=== PATIENT | male | born 1930 | race Caucasian/White ===

== ENCOUNTER 2017-10-14 18:51 | Inpatient (IN) | payer MEDICARE ==
[~2017-10-14] VITALS: Ht 175.3 cm; Wt 78.9 kg
--- NOTE | ~2017-10-14 | EC ---
PATIENT:JOHN MAYNARD DATE OF SERVICE: 10/14/17 SEX: M MEDICAL RECORD: [id number] DATE OF : [birth year] LOCATION:[facility] AGE OF PATIENT: 86 ADMISSION DATE: 10/14/17 REFERRING PHYSICIAN: INTERPRETING PHYSICIAN: NITHIN HERNÁNDEZ MD ECHOCARDIOGRAM REPORT ECHO CHARGES CLINICAL DIAGNOSIS: ECHOCARDIOGRAPHIC MEASUREMENTS (adult normal given) AC root (d.<3.7cm) cm LV Septum d (<1.2 cm> cm Valve Excursion cm LV Septum (systole) cm Left Atria (s.<4.0cm> cm LVPW d(<1.2cm) cm RV (d.<2.3cm) cm LVPW (sytole) cm LV diastole(<5.6CM) cm MV E-F(>70mm/sec) cm LV systole cm LVOT Diameter cm MV exc.(>10mm) cm Est.ejection fraction (50-75%) % Pericardial Effusion DOPPLER: LVIT cm/sec A cm/sec E cm/sec LA cm/sec RVSP mmHg LVOT cm/sec AOP1/2T m/s Asc. Ao cm/sec RVOT cm/sec RA cm/sec PA cm/sec AV Gradient Peak mmHg AV Mean mmHg AV Area cm MV Gradient Peak mmHg MV Mean mmHg MV Area cm COMMENTS: Cnc Machine Programmer: Multigraph Operator: BRADY DATE OF SERVICE: 10/16/2017 PROCEDURE: Echocardiogram. FINDINGS: 1. Technically difficult study secondary to patient movement. 2. Left ventricle chamber size is within normal limits. Left ventricular systolic function is normal. Overall ejection fraction estimated at 55%. 3. Left atrium, right atrium, and right ventricular chamber sizes are within normal limits. ECHOCARDIOGRAM REPORT [id number] JOHN MAYNARD 4. Valvular structures have normal structure and motion. 5. Doppler interrogation reveals no significant valvular insufficiency or stenosis. 6. No evidence of pericardial effusion or left ventricular thrombus. TRANSINT:[id number] Voice Confirmation ID: [id number] DOCUMENT ID: [id number] NITHIN HERNÁNDEZ MD at 1323 CC: [id number] DICTATION DATE: 10/16/17 1249 BLOCKER AND POLISHER GOLD WHEEL: 10/16/17 1425 DIS IN 10/17/[address] [place] [address]
[2017-10-14 19:30] LABS: BASOPHILS 0.2 % (0-2); EOSINOPHILS 0.3 % (0-7); HEMATOCRIT 40.7 % (36.0-48.0); HEMOGLOBIN 13.6 g/dL (12-16); IMMATURE GRANULOCYTES 0.2 % (0-5); LYMPHOCYTES 23.4 % (15-50); MCH 32.5 pg (26.0-34.0); MCHC 33.4 g/dL (31.0-37.0); MCV 97.1 fL (80.0-100.0); MEAN PLATELET VOLUME 10.8 fL (7.4-10.4); MONOCYTES 11.2 % (2-11); NEUTROPHILS 64.7 % (40-80); PLATELET COUNT 271 10x3/uL (130-400); RBC 4.19 10x6/uL (4.00-5.40); RDW 14.6 % (11.5-14.5); WBC 10.9 10x3/uL (4.8-10.8)
[2017-10-14 19:52] LABS: ALBUMIN 3.6 g/dL (3.4-5.0); BILIRUBIN - TOTAL 0.48 mg/dL (0.2-1.3); CALCIUM 9.4 mg/dL (8.5-10.1); CARBON DIOXIDE 24.7 mmol/L (21.0-32.0); CREATININE - SERUM 1.8 mg/dL (0.6-1.3); POTASSIUM - SERUM 3.7 mmol/L (3.5-5.1); PROTEIN - SERUM 8.6 g/dL (6.4-8.2)
[2017-10-14 20:29] LABS: KETONE - SERUM NEGATIVE (NEGATIVE)
[2017-10-14 20:37] LABS: CREATINE KINASE 45 UL (21-215); MAGNESIUM - SERUM 2.2 mg/dL (1.8-2.4); PRO BNP 809 pg/mL (0-450)
[2017-10-14 20:49] LABS: APPEARANCE CLEAR (CLEAR); BILIRUBIN NEGATIVE (NEGATIVE); COLOR YELLOW (YELLOW); GLUCOSE NEGATIVE (NEGATIVE); KETONE NEGATIVE (NEGATIVE); NITRITE NEGATIVE (NEGATIVE); PROTEIN TRACE mg/dL (NEGATIVE); UROBILINOGEN NORMAL (NORMAL)
[2017-10-14 20:50] LABS: TROPONIN-I < 0.017 ng/mL (0.000-0.060)
[2017-10-15] MEDS ORDERED: OMEPRAZOLE40 MG PO (00:16)
[2017-10-15] MEDS ORDERED: GLUCOTROL 5 MG T5 MG PO (00:17)
[2017-10-15] MEDS ORDERED: NORVASC10 MG PO (00:17)
[2017-10-15] MEDS ORDERED: LIPITOR20 MG PO (00:19)
[2017-10-15 02:41] VITALS: BP 138/55; BMI 25.7
[2017-10-15 04:00] VITALS: BP 113/52
[2017-10-15 10:57] VITALS: BP 115/45
[2017-10-15 12:45] VITALS: BP 144/61
[2017-10-15 13:15] VITALS: Ht 175.3 cm; Wt 78.9 kg
[2017-10-15 14:07] LABS: BASOPHILS 0.1 % (0-2); EOSINOPHILS 0 % (0-7); HEMATOCRIT 37.1 % (42.0-54.0); HEMOGLOBIN 12.5 g/dL (13.5-17.5); IMMATURE GRANULOCYTES 0.3 % (0-5); LYMPHOCYTES 11.6 % (15-50); MCH 32.5 pg (26.0-34.0); MCHC 33.7 g/dL (31.0-37.0); MCV 96.4 fL (80.0-100.0); MEAN PLATELET VOLUME 11.1 fL (7.4-10.4); MONOCYTES 6.7 % (2-11); NEUTROPHILS 81.3 % (40-80); PLATELET COUNT 261 10x3/uL (130-400); RBC 3.85 10x6/uL (4.20-6.10); RDW 14.7 % (11.5-14.5); WBC 9.3 10x3/uL (4.8-10.8)
[2017-10-15 14:31] LABS: ANION GAP 13.5 mmol/L (8-16); BILIRUBIN - TOTAL 0.52 mg/dL (0.2-1.3); CALCIUM 9.4 mg/dL (8.5-10.1); CREATININE - SERUM 1.7 mg/dL (0.6-1.3); POTASSIUM - SERUM 3.5 mmol/L (3.5-5.1); PROTEIN - SERUM 7.5 g/dL (6.4-8.2)
[2017-10-15 16:45] VITALS: BP 137/65
[2017-10-15 20:00] VITALS: BP 127/64
[2017-10-16] VITALS: BP 133/55
[2017-10-16 04:00] VITALS: BP 157/62
[2017-10-16 06:34] LABS: HEMOGLOBIN 12.4 g/dL (13.5-17.5); LYMPHOCYTES 6.7 % (15-50); MCH 31.2 pg (26.0-34.0); MCHC 33.5 g/dL (31.0-37.0); MEAN PLATELET VOLUME 10.3 fL (7.4-10.4); NEUTROPHILS 88.1 % (40-80); PLATELET COUNT 256 10x3/uL (130-400); RBC 3.97 10x6/uL (4.20-6.10); RDW 14.8 % (11.5-14.5)
[2017-10-16 06:43] LABS: MCV 93.2 fL (80.0-100.0); WBC 13.6 10x3/uL (4.8-10.8)
[2017-10-16 07:10] LABS: ALBUMIN 2.8 g/dL (3.4-5.0); ANION GAP 16.4 mmol/L (8-16); BILIRUBIN - TOTAL 0.4 mg/dL (0.2-1.3); CALCIUM 9.1 mg/dL (8.5-10.1); CARBON DIOXIDE 22.5 mmol/L (21.0-32.0); CREATININE - SERUM 1.5 mg/dL (0.6-1.3); POTASSIUM - SERUM 3.9 mmol/L (3.5-5.1); PROTEIN - SERUM 7.4 g/dL (6.4-8.2)
[2017-10-16 09:03] VITALS: BP 143/61
[2017-10-16 13:53] VITALS: BP 104/59
[2017-10-16 16:20] VITALS: BP 109/44
[2017-10-16 22:28] VITALS: BP 122/54
[2017-10-17 02:16] VITALS: BP 144/59
[2017-10-17 04:00] VITALS: BP 138/60
[2017-10-17 06:15] LABS: BASOPHILS 0.1 % (0-2); EOSINOPHILS 0.1 % (0-7); HEMATOCRIT 35.5 % (42.0-54.0); HEMOGLOBIN 11.8 g/dL (13.5-17.5); IMMATURE GRANULOCYTES 0.3 % (0-5); LYMPHOCYTES 11.6 % (15-50); MCH 31.6 pg (26.0-34.0); MCHC 33.2 g/dL (31.0-37.0); MCV 94.9 fL (80.0-100.0); MEAN PLATELET VOLUME 10.6 fL (7.4-10.4); MONOCYTES 6.9 % (2-11); PLATELET COUNT 269 10x3/uL (130-400); RBC 3.74 10x6/uL (4.20-6.10); RDW 14.6 % (11.5-14.5); WBC 11.3 10x3/uL (4.8-10.8)
[2017-10-17 06:33] LABS: ALBUMIN 2.7 g/dL (3.4-5.0); BILIRUBIN - TOTAL 0.46 mg/dL (0.2-1.3); CALCIUM 8.8 mg/dL (8.5-10.1); CREATININE - SERUM 1.7 mg/dL (0.6-1.3); POTASSIUM - SERUM 3.5 mmol/L (3.5-5.1); PROTEIN - SERUM 7.2 g/dL (6.4-8.2)
[2017-10-17 06:41] LABS: ANION GAP 26.6 mmol/L (8-16); CARBON DIOXIDE 11.9 mmol/L (21.0-32.0)
[2017-10-17 08:17] VITALS: BP 154/48
[2017-10-17 11:47] VITALS: BP 117/58
[2017-10-17] MEDS ORDERED: TESSALON PERLE100 MG PO (12:16)
[2017-10-17] MEDS ORDERED: Levaquin PREMIX IV (12:16)
[2017-10-17] MEDS ORDERED: IPRAT-ALBUT 0.5-3 ML UPD (12:16)
[2017-10-17] MEDS ORDERED: FUROSEMIDE10 MG/M1 IV (12:16)
[2017-10-17] MEDS ORDERED: ZITHROMAX 500M500 MG IV (12:16)
[2017-10-17] MEDS ORDERED: MELATONIN 3 MG1 TAB PO (12:17)
[2017-10-17] MEDS ORDERED: HUMALOG 30100 UNITS/ SC (12:17)
[2017-10-17] MEDS ORDERED: PROTONIX40 MG PO (12:17)
[2017-10-17] MEDS ORDERED: MUCINEX600 MG PO (12:17)
[2017-10-17] MEDS ORDERED: FLORAJEN3 CAPS460 MG PO (12:17)
[2017-10-17] MEDS ORDERED: ONDANSETRON4 MG/2 M3 IV (12:17)
== END 2017-10-17 15:26 | DRG 193 ==
LOC: EDSEX 18:51 → D.ER 18:51 → D.MS 23:04
PROVIDERS: Emergency Medicine; Family Medicine
DX: J18.9 Pneumonia, unspecified organism (principal); J96.01 Acute respiratory failure with hypoxia; N17.9 Acute kidney failure, unspecified; E86.0 Dehydration; E11.65 Type 2 diabetes mellitus with hyperglycemia; I10 Essential (primary) hypertension; K21.9 Gastro-esophageal reflux disease without esophagitis; Z87.891 Personal history of nicotine dependence

== ENCOUNTER 2017-10-17 15:22 | Inpatient (IN) | payer MEDICARE ==
[~2017-10-17] VITALS: Ht 175.3 cm; Wt 79.1 kg
--- NOTE | ~2017-10-17 | RHP ---
PATIENT: JOHN MAYNARD MEDICAL RECORD: [id number] ACCOUNT: [id number] [id number] : [birth year] ADMISSION DATE: 10/17/17 REHABILITATION HISTORY AND PHYSICAL EXAMINATION POST ADMISSION PHYSICIAN EXAMINATION DATE OF ADMISSION: 10/17/2017. ADMITTING DIAGNOSIS: Disuse myopathy. HISTORY OF PRESENT ILLNESS: The patient is admitted to inpatient rehab with a disuse myopathy. This is an 86-year-old gentleman who presented to ED via EMS. His daughter found him lying on floor with confusion, decreased level of consciousness, cough, shortness of breath, and cyanosis. He was unable to ambulate; therefore, EMS was called and transferred him to the hospital. He was noted to have a pulse ox of 82% on room air. He has past medical history of diabetes, hypertension, acid reflux, constipation, aortic repair, and former tobacco use. He is admitted to the hospital with hypoxia, community-acquired pneumonia, diabetes, hyperglycemia, acute kidney injury, and dehydration. He has been seen and followed by PT, OT, and speech therapy. He was living at home with his significant other, but has not been in good health herself. He was independent with his mobility and ADLs. He is noted to have proximal muscle weakness with difficulty rising from bed to chair. He is currently on telemetry, IV antibiotics, and supplemental O2. He is currently setup for max assist for ADLs and moderate to max assist for mobility. He and his daughter plan for him to return home to the [facility] living after his acute inpatient stay here in the rehab and hopefully get back to his prior level of functioning or better if possible. COMORBIDITIES: In this patient include dysphagia, hypoxia, community-acquired pneumonia, diabetes, hypertension, former tobacco use, dehydration, and acute kidney injury. PAST MEDICAL HISTORY: Significant for diabetes, hypertension, pneumonia, skin cancers, acid reflux, constipation, urinary incontinence, enlarged prostate, former tobacco use. He has also had aortic aneurysm. PAST SURGICAL HISTORY: Includes aortic replacement in 2001. ALLERGIES: No known drug allergies. CURRENT MEDICATIONS: Include Zithromax 500 mg daily, glipizide 5 mg b.i.d., furosemide 20 mg daily, Lipitor 10 mg daily, Norvasc 5 mg daily, Protonix 40 mg daily, Floranex 460 mg daily. He is on a low resistant sliding scale with Humalog, Mucinex 1200 mg b.i.d., Tessalon Perles 100 mg t.i.d. p.r.n., Zofran 4 mg q.6 hours p.r.n., melatonin 6 mg at bedtime. He is also on Levaquin at this time 750 mg q.24 hours, DuoNeb updrafts, and polyethylene glycol 17 grams in 8 ounces of water daily. HABITS: He does have a history of tobacco use. FAMILY HISTORY: Noncontributory. SOCIAL HISTORY: The patient hopes to return back to the [facility] assisted living at his prior level of functioning or better. HISTORY AND PHYSICAL [id number] JOHN MAYNARD REVIEW OF SYSTEMS: GENERAL: He does complain of some weakness. HEENT: He does complain of cold, cough, congestion. CARDIOVASCULAR: He denies any chest pain. LUNGS: He denies any shortness of breath. PHYSICAL EXAMINATION: VITAL SIGNS: Stable, afebrile. GENERAL: Elderly gentleman in no acute distress, alert upon exam. HEENT: Normocephalic and atraumatic. Mucosa moist. NECK: Supple. No lymphadenopathy. LUNGS: Coarse breath sounds bilaterally. He has inspiratory sounds pretty good, but expiratory, he has bilateral rhonchi and rales. CARDIOVASCULAR: Regular rate and rhythm. ABDOMEN: Benign. EXTREMITIES: He does have some peripheral edema. NEUROLOGIC: He seems intact. LABORATORY DATA: His white count is 14,000, H&H of 12 and 37, and platelet count was noted to be 318. Sodium is 139, potassium 4.0, BUN and creatinine is 39 and 1.6 and blood sugar was noted to be 92. ASSESSMENT: This is an 86-year-old gentleman admitted to the rehab with a working diagnosis of disuse myopathy. The patient has potential to make improvement. We instituted the following multidisciplinary therapies including to, but not limited to physical, occupational, respiratory, speech, nutritional services, prosthetics and orthotics. Given his complex condition and risk for more complications, rehabilitation services cannot be provided at a low level of care such as a care home facility. PLAN: 1. Admit to [facility] rehab for intensive inpatient therapy to include the following disciplines: A. Physical therapy to improve gait, all transfer skills and bed mobility to a modified independent level. B. Occupational therapy to improve activities of daily living to a modified independent level. C. Case management to assist with discharge planning and placement options. D. Nutrition to assist with nutritional needs. E. Rehabilitation nursing to assist in monitoring the patient's underlying medical conditions and to assist with any type of bowel or bladder management. 2. The patient's current medication and medical care will be continued. 3. The patient will be placed on standard fall precautions. 4. The patient's estimated length of stay is approximately 7-10 days. 5. Discuss this patient during care team staff meeting this week. TRANSINT:[id number] Voice Confirmation ID: [id number] DOCUMENT ID: [id number] WALDO notes whether there has been none or any medical/functional change since admission: - No change since pre-admission screen. HISTORY AND PHYSICAL [id number] JOHN MAYNARD attests patient continues to be appropriate for IRF: - Continues to be appropriate for IRF. CHARLEY VOSS MD at 1318 CC: [id number] DICTATION DATE: 10/18/17 1037 QUALITY CONTROL CLERK: 10/18/17 1126 DIS IN 10/19/17 [facility] [address] [place] [address]
[~2017-10-17 15:22] MED LIST: FLORAJEN3 CAPS460 MG PO; FUROSEMIDE10 MG/M1 IV; GLUCOTROL 5 MG T5 MG PO; HUMALOG 30100 UNITS/ SC; IPRAT-ALBUT 0.5-3 ML UPD; LIPITOR20 MG PO; Levaquin PREMIX IV; MELATONIN 3 MG1 TAB PO; MUCINEX600 MG PO; NORVASC10 MG PO; OMEPRAZOLE40 MG PO; ONDANSETRON4 MG/2 M3 IV; PROTONIX40 MG PO; TESSALON PERLE100 MG PO; ZITHROMAX 500M500 MG IV
[2017-10-17 16:16] VITALS: BP 134/70; Ht 175.3 cm; Wt 79.1 kg
[2017-10-17 22:00] VITALS: BP 134/63
[2017-10-18 06:02] LABS: BASOPHILS 0.1 % (0-2); EOSINOPHILS 0.1 % (0-7); HEMATOCRIT 37.1 % (42.0-54.0); HEMOGLOBIN 12.5 g/dL (13.5-17.5); IMMATURE GRANULOCYTES 0.3 % (0-5); LYMPHOCYTES 7.3 % (15-50); MCH 32.2 pg (26.0-34.0); MCHC 33.7 g/dL (31.0-37.0); MCV 95.6 fL (80.0-100.0); MEAN PLATELET VOLUME 10.7 fL (7.4-10.4); MONOCYTES 5.8 % (2-11); NEUTROPHILS 86.4 % (40-80); PLATELET COUNT 318 10x3/uL (130-400); RBC 3.88 10x6/uL (4.20-6.10); RDW 14.7 % (11.5-14.5)
[2017-10-18 06:19] LABS: ANION GAP 12.7 mmol/L (8-16); CALCIUM 9.3 mg/dL (8.5-10.1); CREATININE - SERUM 1.6 mg/dL (0.6-1.3)
[2017-10-18 06:20] LABS: CARBON DIOXIDE 26.3 mmol/L (21.0-32.0)
[2017-10-18 08:54] VITALS: BP 139/75
[2017-10-18 19:45] VITALS: BP 127/59
[2017-10-19 07:30] VITALS: BP 127/67
== END 2017-10-19 15:22 | DRG 91 ==
LOC: D.REHAB 15:22
PROVIDERS: Emergency Medicine
DX: G72.89 Other specified myopathies (principal); J18.9 Pneumonia, unspecified organism; N17.9 Acute kidney failure, unspecified; R09.02 Hypoxemia; I10 Essential (primary) hypertension; E86.0 Dehydration; Z87.891 Personal history of nicotine dependence; R13.12 Dysphagia, oropharyngeal phase; E11.65 Type 2 diabetes mellitus with hyperglycemia

== ENCOUNTER 2017-10-19 15:13 | Inpatient (IN) | payer MEDICARE, BC ==
[~2017-10-19] VITALS: Ht 175.3 cm; Wt 70.5 kg
--- NOTE | ~2017-10-19 | CN ---
PATIENT NAME:JOHN MAYNARD MEDICAL RECORD: [id number] : [birth year] LOCATION:[facility] ADMIT DATE: 10/19/17 ACCOUNT: [id number] CONSULTING PHYSICIAN: RICARDO MADRID MD REFERRING PHYSICIAN: CHARLEY VOSS MD DATE OF CONSULTATION: 10/21/2017 CHIEF COMPLAINT: Failed swallowing evaluation. HISTORY OF PRESENT ILLNESS: The patient underwent a bedside swallowing evaluation and failed the swallowing evaluation. The patient has respiratory failure and is currently on BiPAP. I have been asked to place a feeding tube. The patient's family is at the bedside. The risks, possible complications, and alternatives to PEG tube placement were explained to patient. This included the risk of bleeding requiring emergency reoperation, infection, intestinal injury as well as the possibility that I would be unable to perform the procedure due to adhesions. The patient has undergone a midline incision in the past and an aortic repair and so he could very well have significant adhesions. We also discussed the possibility of early dislodgement and how catastrophic that can be in a situation such as Mr. Edwards. Nothing aggravates. Nothing alleviates. He is unable to really give me any history. For the typed portion of the consult note, please see the chart. I would include the past medical and surgical history, current medications, allergies, social history as well as a family history. REVIEW OF SYSTEMS: Unobtainable from the patient as he currently has a BiPAP on and is unable to communicate with me verbally. PHYSICAL EXAMINATION: GENERAL: The patient appears acutely ill. Also appears chronically ill. VITAL SIGNS: Reviewed. EARS: External ears appear normal. EYES: Extraocular movements are intact. NECK: Trachea is midline. CHEST: There are intercostal retractions. His breathing is labored. ABDOMEN: Nontender. There may be an incisional hernia at the cephalad portion of the midline incision. EXTREMITIES: No peripheral cyanosis. INTEGUMENT: No rash. PSYCHIATRIC: Anxious affect. BACK: No thoracic kyphosis. LYMPHATIC: No lymphangitic streaking of the exposed extremities. IMPRESSION: 1. Acute malnutrition in a patient with respiratory failure. 2. This patient has failed a swallowing evaluation. PLAN: Will be EGD and PEG placement at the patient's bedside tomorrow. TRANSINT:[id number] Voice Confirmation ID: [id number] DOCUMENT ID: [id number] CONSULT REPORT [id number] JOHN MAYNARD ROBERT MD at 0938 CC: [id number] DICTATION DATE: 10/21/17 1101 EMERGENCY PHYSICIAN: 10/21/17 1237 ADM IN [place] [id number] [place] [id number]
[2017-10-19 17:01] LABS: HEMATOCRIT 36.8 % (42.0-54.0); HEMOGLOBIN 12.4 g/dL (13.5-17.5); MCHC 33.7 g/dL (31.0-37.0); MCV 95.1 fL (80.0-100.0); MEAN PLATELET VOLUME 10.5 fL (7.4-10.4); PLATELET COUNT 346 10x3/uL (130-400); RBC 3.87 10x6/uL (4.20-6.10); RDW 14.5 % (11.5-14.5); WBC 26.2 10x3/uL (4.8-10.8)
[2017-10-19 17:05] LABS: INR 1.21 (0.85-1.17); PROTIME 14.9 SECONDS (11.6-15.0)
[2017-10-19 17:26] LABS: LYMPHOCYTES 3 % (15-50); MONOCYTES 1 % (2-11); NEUTROPHILS 96 % (40-80); PLATELET ESTIMATE INCREASED
[2017-10-19 17:30] LABS: ALKALINE PHOSPHATASE 79 U/L (46-116); ALT (SGPT) 41 U/L (10-68); AMYLASE - SERUM 76 U/L (25-115); CARBON DIOXIDE 23.5 mmol/L (21.0-32.0); CHLORIDE - SERUM 102 mmol/L (98-107); CREATINE KINASE 418 UL (21-232); LIPASE 51 U/L (73-393); MAGNESIUM - SERUM 2.6 mg/dL (1.8-2.4); PHOSPHOROUS 4.4 mg/dL (2.5-4.9); POTASSIUM - SERUM 4.3 mmol/L (3.5-5.1); PROTEIN - SERUM 7.6 g/dL (6.4-8.2); SODIUM 138 mmol/L (136-145); eGFR NON AFRICAN AMERICAN 34 mL/min (90-120)
[2017-10-19 17:31] LABS: CALC OSMOLALITY 295 mosm/kg (275-300); GLUCOSE 163 mg/dL (74-106); UREA NITROGEN 56 mg/dL (7-18)
[2017-10-19 17:32] LABS: CKMB 7.4 U/L (0.0-3.6); KETONE - SERUM NEGATIVE (NEGATIVE)
[2017-10-19 19:00] VITALS: BP 143/83
[2017-10-19 19:58] VITALS: BP 138/67; BMI 23.8
[2017-10-19 20:00] VITALS: BP 149/77
[2017-10-19 21:00] VITALS: BP 149/63
[2017-10-19 22:00] VITALS: BP 125/64
[2017-10-19 23:00] VITALS: BP 150/75
[2017-10-20] VITALS (24 sets, daily range): BP systolic 117–173; BP diastolic 51–80; Ht 175.3 cm; Wt 70.5 kg
[2017-10-20 04:09] LABS: ALBUMIN 2.7 g/dL (3.4-5.0); ANION GAP 16.4 mmol/L (8-16); BILIRUBIN - TOTAL 0.52 mg/dL (0.2-1.3); CALCIUM 9.3 mg/dL (8.5-10.1); CARBON DIOXIDE 23.7 mmol/L (21.0-32.0); CREATININE - SERUM 1.9 mg/dL (0.6-1.3); POTASSIUM - SERUM 4.1 mmol/L (3.5-5.1); PROTEIN - SERUM 7.9 g/dL (6.4-8.2)
[2017-10-20 04:11] LABS: BASOPHILS 0 % (0-2); EOSINOPHILS 0 % (0-7); HEMATOCRIT 36.8 % (42.0-54.0); HEMOGLOBIN 12.1 g/dL (13.5-17.5); IMMATURE GRANULOCYTES 0.6 % (0-5); LYMPHOCYTES 3.3 % (15-50); MCH 31.4 pg (26.0-34.0); MCHC 32.9 g/dL (31.0-37.0); MCV 95.6 fL (80.0-100.0); MEAN PLATELET VOLUME 10.2 fL (7.4-10.4); MONOCYTES 1.1 % (2-11); PLATELET COUNT 326 10x3/uL (130-400); RBC 3.85 10x6/uL (4.20-6.10); RDW 14.5 % (11.5-14.5); WBC 26.1 10x3/uL (4.8-10.8)
[2017-10-21] VITALS (24 sets, daily range): BP systolic 109–152; BP diastolic 47–82
[2017-10-21 04:10] LABS: BASOPHILS 0 % (0-2); EOSINOPHILS 0 % (0-7); HEMATOCRIT 35.3 % (42.0-54.0); HEMOGLOBIN 11.8 g/dL (13.5-17.5); IMMATURE GRANULOCYTES 0.5 % (0-5); LYMPHOCYTES 1.7 % (15-50); MCH 31.8 pg (26.0-34.0); MCHC 33.4 g/dL (31.0-37.0); MCV 95.1 fL (80.0-100.0); MEAN PLATELET VOLUME 10.3 fL (7.4-10.4); MONOCYTES 3.1 % (2-11); NEUTROPHILS 94.7 % (40-80); PLATELET COUNT 376 10x3/uL (130-400); RBC 3.71 10x6/uL (4.20-6.10); RDW 14.5 % (11.5-14.5)
[2017-10-21 04:19] LABS: CALCIUM 9.3 mg/dL (8.5-10.1); CARBON DIOXIDE 22.9 mmol/L (21.0-32.0); MAGNESIUM - SERUM 2.7 mg/dL (1.8-2.4); PHOSPHOROUS 4.2 mg/dL (2.5-4.9); VANCOMYCIN - TROUGH 25.1 ug/mL (10.0-20.0)
[2017-10-21 04:29] LABS: POTASSIUM - SERUM 2.9 mmol/L (3.5-5.1)
[2017-10-21 10:47] LABS: ALBUMIN 2.7 g/dL (3.4-5.0); ANION GAP 16.4 mmol/L (8-16); CALCIUM 9.8 mg/dL (8.5-10.1); CARBON DIOXIDE 23.9 mmol/L (21.0-32.0); MAGNESIUM - SERUM 2.9 mg/dL (1.8-2.4); PHOSPHOROUS 3.8 mg/dL (2.5-4.9); POTASSIUM - SERUM 3.3 mmol/L (3.5-5.1); PRE-ALBUMIN 11.5 mg/dL (18.0-35.7)
[2017-10-22] VITALS (21 sets, daily range): BP systolic 123–167; BP diastolic 63–95
[2017-10-22 05:02] LABS: HEMATOCRIT 35.4 % (42.0-54.0); LYMPHOCYTES 2.5 % (15-50); MCH 31.7 pg (26.0-34.0); MCHC 33.9 g/dL (31.0-37.0); MCV 93.4 fL (80.0-100.0); MEAN PLATELET VOLUME 9.9 fL (7.4-10.4); NEUTROPHILS 92.8 % (40-80); PLATELET COUNT 383 10x3/uL (130-400); RBC 3.79 10x6/uL (4.20-6.10); WBC 18.1 10x3/uL (4.8-10.8)
[2017-10-22 05:08] LABS: ANION GAP 15.4 mmol/L (8-16); CALCIUM 9.5 mg/dL (8.5-10.1); CARBON DIOXIDE 24.3 mmol/L (21.0-32.0); CREATININE - SERUM 1.8 mg/dL (0.6-1.3); POTASSIUM - SERUM 3.7 mmol/L (3.5-5.1)
[2017-10-23] VITALS: BP 156/76
[2017-10-23 04:00] VITALS: BP 178/84
[2017-10-23 04:52] LABS: BASOPHILS 0.1 % (0-2); EOSINOPHILS 0 % (0-7); HEMATOCRIT 38.9 % (42.0-54.0); HEMOGLOBIN 12.7 g/dL (13.5-17.5); IMMATURE GRANULOCYTES 1.9 % (0-5); MCH 31.8 pg (26.0-34.0); MCHC 32.6 g/dL (31.0-37.0); MEAN PLATELET VOLUME 10.5 fL (7.4-10.4); MONOCYTES 6.8 % (2-11); NEUTROPHILS 86.2 % (40-80); PLATELET COUNT 353 10x3/uL (130-400); RBC 3.99 10x6/uL (4.20-6.10); RDW 14.9 % (11.5-14.5); WBC 15.7 10x3/uL (4.8-10.8)
[2017-10-23 05:10] LABS: MCV 97.5 fL (80.0-100.0)
[2017-10-23 05:30] LABS: ANION GAP 16.1 mmol/L (8-16); CALCIUM 9.6 mg/dL (8.5-10.1); CARBON DIOXIDE 25.7 mmol/L (21.0-32.0); CREATININE - SERUM 1.8 mg/dL (0.6-1.3); POTASSIUM - SERUM 3.8 mmol/L (3.5-5.1)
[2017-10-23 08:45] VITALS: BP 178/81
[2017-10-23 12:37] VITALS: BP 191/97
[2017-10-23 16:14] VITALS: BP 190/94
== END 2017-10-23 20:26 | disposition hospice, inpatient (51) | DRG 177 ==
LOC: D.ICU 15:13 → D.MS 15:36 → D.ICU 15:36 → D.MS 10-22 22:53
PROVIDERS: Emergency Medicine; Internal Medicine Nephrology; Internal Medicine Pulmonary Disease; Surgery
PROC: 5A09457 Assistance with Respiratory Ventilation, 24-96 Consecutive Hours, Continuous Positive Airway Pressure (ICD-10-PCS; principal; 2017-10-19)
DX: J69.0 Pneumonitis due to inhalation of food and vomit (principal); J96.01 Acute respiratory failure with hypoxia; G93.41 Metabolic encephalopathy; E46 Unspecified protein-calorie malnutrition; N17.9 Acute kidney failure, unspecified; J44.1 Chronic obstructive pulmonary disease with (acute) exacerbation; J44.0 Chronic obstructive pulmonary disease with (acute) lower respiratory infection; J18.9 Pneumonia, unspecified organism; Z68.24 Body mass index [BMI] 24.0-24.9, adult; I10 Essential (primary) hypertension; E11.649 Type 2 diabetes mellitus with hypoglycemia without coma; E86.0 Dehydration; J32.9 Chronic sinusitis, unspecified; K21.9 Gastro-esophageal reflux disease without esophagitis; R13.10 Dysphagia, unspecified; G47.33 Obstructive sleep apnea (adult) (pediatric); D64.9 Anemia, unspecified

== ENCOUNTER 2017-10-23 20:33 | Inpatient (IN) | payer OTHER ==
[~2017-10-23] VITALS: Ht 175.3 cm; Wt 70.6 kg
[2017-10-23 20:00] VITALS: BP 140/77
[2017-10-24 01:11] VITALS: BP 140/77; Ht 175.3 cm; Wt 70.6 kg
[2017-10-24 07:54] VITALS: BP 182/82
[2017-10-24 20:00] VITALS: BP 173/87
[2017-10-25 08:49] VITALS: BP 111/74
[2017-10-25 20:00] VITALS: BP 158/90
== END 2017-10-26 18:33 | DRG 951 ==
LOC: D.MS 20:33
DX: Z51.5 Encounter for palliative care (principal)